=== PATIENT | male | born 1940 | race Caucasian/White ===

== ENCOUNTER → 2016-06-11 | Outpatient (CLI) | payer MEDICARE, OTHER | LOC: RAD 12:19 | PROVIDERS: ATTEND Specialist | DX: C18.7 Malignant neoplasm of sigmoid colon (principal) | CPT/HCPCS: 71260; 74177; 82565 ==

== ENCOUNTER 2016-07-16 08:17 | Inpatient (IN) | payer MEDICARE ==
[2016-07-05 10:24] LABS: MEAN CORPUSCULAR HEMOGLOBIN 25.1 pg (27.0-33.4); MEAN CORPUSCULAR HGB CONC 32.4 g/dL (32.0-36.0); MEAN CORPUSCULAR VOLUME 77 fl (80-97); RED BLOOD COUNT 4.78 10^6/uL (4.35-5.55); RED CELL DISTRIBUTION WIDTH 16.4 % (11.5-14.0); WHITE BLOOD COUNT 11.7 10^3/uL (4.0-10.5)
[2016-07-05 10:50] LABS: ALANINE AMINOTRANSFERASE 47 U/L (21-72); ALKALINE PHOSPHATASE 45 U/L (38-126); ANION GAP 9 (5-19); ASPARTATE AMINO TRANSFERASE 39 U/L (17-59); BILIRUBIN,DIRECT 0.2 mg/dL (0.0-0.4); BILIRUBIN,TOTAL 0.9 mg/dL (0.2-1.3); BLOOD UREA NITROGEN 29 mg/dL (7-20); CALCIUM 10.3 mg/dL (8.4-10.2); CARBON DIOXIDE 32 mmol/L (22-30); CHLORIDE 101 mmol/L (98-107); CREATININE RESULT 1.16 mg/dL (0.52-1.25); GLUCOSE 94 mg/dL (75-110); POTASSIUM 4.5 mmol/L (3.6-5.0); SODIUM 142.2 mmol/L (137-145); TOTAL PROTEIN 6.7 g/dL (6.3-8.2)
--- NOTE | 2016-07-05 22:30 | EKG REPORT ---
SEVERITY:- ABNORMAL ECG - ATRIAL FIBRILLATION INCOMPLETE RIGHT BUNDLE BRANCH BLOCK LVH WITH SECONDARY REPOLARIZATION ABNORMALITY : Confirmed by: Carisa Valencia MD 05-Jul-2016 22:28:58
[~2016-07-16 08:17] MED LIST: LIDOCAINE 0.5% INJ-PF (5 MG/ML) 50 ML SDV SUBCUT PRN; NORMAL SALINE 1000 ML 1,000 ML IV PRN; RINGERS SOLUTION,LACTATED 500 ML IV PRN
[2016-07-16] MEDS ORDERED: NEOSTIGMINE METHYLSULFATE 10 MG/10 ML VIAL ONE (08:33)
[2016-07-16] MEDS ORDERED: DEXAMETHASONE SOD PHOSPHATE INJ 4 MG/1 ML VIAL ONE (08:33)
[2016-07-16] MEDS ORDERED: GLYCOPYRROLATE INJ 0.4 MG/2 ML VIAL ONE (08:33)
[2016-07-16] MEDS ORDERED: ONDANSETRON HCL INJ/PF 4 MG/2 ML SDV ONE (08:33)
[2016-07-16] MEDS ORDERED: METOCLOPRAMIDE HCL INJ/PF 10 MG/2 ML SDV ONE (08:33)
[2016-07-16] MEDS ORDERED: LIDOCAINE 2% INJ-PF (20 MG/ML) 10 ML AMPUL ONE (08:33)
[2016-07-16] MEDS ORDERED: SUCCINYLCHOLINE CHLORIDE INJ 200 MG/10 ML VIAL ONE (08:33)
[2016-07-16] MEDS ORDERED: ROCURONIUM BROMIDE INJ 50 MG/5 ML VIAL IV ONE (08:33)
[2016-07-16] MEDS ORDERED: BUPIVACAINE HCL 0.25 % INJ/PF (2.5 MG/1 ML) 30 ML VIAL ONE (12:47)
[2016-07-16] MEDS ORDERED: FENTANYL CITRATE INJ/PF 100 MCG/2 ML AMPUL ONE (12:49)
[2016-07-16] MEDS ORDERED: MIDAZOLAM 2 MG/2 ML INJ ONE (12:49)
[2016-07-16] MEDS ORDERED: FENTANYL CITRATE INJ/PF 250 MCG/5 ML AMPULE ONE (12:49)
[2016-07-16] MEDS ORDERED: EPHEDRINE SULFATE INJ 50 MG/1 ML AMPULE ONE (12:50)
[2016-07-16] MEDS ORDERED: PROPOFOL INJ 200 MG/20 ML VIAL IV ONE (12:50)
[2016-07-16] MEDS: ERTAPENEM SODIUM 1 GM in NORMAL SALINE 50 ML IV PRN ×4 (13:59→22:40)
[2016-07-16] MEDS: BUPIVACAINE HCL 0.25% /EPINEPHRINE INJ/PF 30 ML SDV ONE ×2 (14:06→14:22)
[2016-07-16] MEDS ORDERED: PROMETHAZINE HCL INJ 25 MG/1 ML VIAL IV PRN ×2 (14:16)
[2016-07-16] MEDS ORDERED: DIPHENHYDRAMINE HCL 50 MG/ML VIAL IV PRN (14:16)
[2016-07-16] MEDS ORDERED: MORPHINE SULFATE 10 MG/ML INJ IV PRN (14:16)
[2016-07-16] MEDS ORDERED: OXYCODONE-ACETAMINOPHEN 5-325 MG TABLET PO PRN ×2 (14:16)
[2016-07-16] MEDS ORDERED: FENTANYL CITRATE INJ/PF 100 MCG/2 ML AMPUL IV PRN ×3 (14:16)
[2016-07-16] MEDS ORDERED: MEPERIDINE HCL/PF INJ 25 MG/1 ML DISP.SYRIN IV PRN (14:16)
[2016-07-16] MEDS ORDERED: ONDANSETRON HCL INJ/PF 4 MG/2 ML SDV IV PRN (17:01)
[2016-07-16] MEDS ORDERED: GLUCAGON,HUMAN RECOMB 1 MG INJ SUBCUT PRN (17:01)
[2016-07-16] MEDS ORDERED: DEXTROSE 40% GEL 15 GM TUBE PO PRN ×2 (17:01)
[2016-07-16] MEDS ORDERED: DEXTROSE 50%-WATER 25 GM/50 ML DISP.SYRIN IV PRN ×2 (17:01)
[2016-07-16] MEDS ORDERED: ACETAMINOPHEN 100 ML IV ONE (17:19)
[2016-07-16] MEDS ORDERED: IBUPROFEN INJ 800 MG/8 ML VIAL IV ONE (17:26)
[2016-07-16] MEDS ORDERED: HYDROMORPHONE HCL INJ/PF 2 MG/ML AMPULE ONE (17:56)
--- NOTE | 2016-07-16 19:17 | PDOC PROGRESS REPORT ---
Subjective Progress Note for:: 07/16/16 Subjective:: feels ok. Physical Exam Vital Signs: Temp Pulse Resp BP Pulse Ox 98.7 F 78 18 135/56 H 95 07/16/16 17:01 07/16/16 18:31 07/16/16 18:31 07/16/16 18:31 07/16/16 18:31 Intake & Output 07/15/16 07/16/16 07/17/16 06:59 06:59 06:59 Intake Total 3150 Output Total 900 Balance 2250 General appearance: PRESENT: no acute distress, cooperative Respiratory exam: PRESENT: clear to auscultation cuco Cardiovascular exam: PRESENT: RRR GI/Abdominal exam: PRESENT: other - soft, nd, appropriate tenderness Results Laboratory Results: 07/05/16 10:00 07/16/16 08:55 07/16/16 07/16/16 08:55 08:55 Potassium 3.6 Blood Type A POSITIVE Antibody Screen NEGATIVE Assessment & Plan - Diagnosis (1) Rectal cancer Is this a current diagnosis for this admission?: YesPlan: s/p LAR. looks good. fluid bolus. ambulate in am.
--- NOTE | 2016-07-16 19:21 | Operative Report ---
Operative Report DATE OF SURGERY: 07/16/16 PREOPERATIVE DIAGNOSIS: Upper rectal cancer POSTOPERATIVE DIAGNOSIS: Upper rectal cancer OPERATION: Low anterior resection with mobilization of the splenic flexure SURGEON: JAZZY SINGLETON ANESTHESIA: GA TISSUE REMOVED OR ALTERED: Sigmoid colon and upper to mid rectum COMPLICATIONS: None ESTIMATED BLOOD LOSS: 100 mL INTRAOPERATIVE FINDINGS: Upper rectal circumferential cancer. No gross evidence of metastatic disease PROCEDURE: Informed consent was obtained. Patient was brought to the operating room placed on the operating room table in supine position. After satisfactory induction of general anesthesia, patient was placed in a low lithotomy position and his abdomen and perineum were prepped and draped in usual sterile fashion. A midline abdominal incision was made beginning just above the umbilicus extending down to the pubis. The peritoneal cavity was entered without difficulty. a wound protractor was used during the case. Exploratory laparotomy was performed first. The liver appeared normal with no masses other than what appeared to be a benign cyst at the medial segment of the left lobe of the liver. Peritoneal surface felt smooth with no nodules. Omentum appeared normal although it did have some adhesions to the small bowel. These adhesions were taken down. The small bowel was run from the ligament of Treitz to the ileocecal junction and the small bowel appeared normal. The right colon and the transverse colon and descending colon and sigmoid colon all appeared normal. At the upper rectum right at the peritoneal reflection there was a palpable rectal mass. The left colon was mobilized along the line of Toldt. The sigmoid colon was mobilized. The left ureter was identified and protected during the dissection. The HENRIK was isolated and it was divided near its origin. It was clamped divided and tied. The colon was divided using a GOPI stapling device at the junction between the descending colon and the sigmoid colon. The entire mesentery of the sigmoid colon was taken using the LigaSure device. Dissection was then carried down distally. Posterior dissection of the rectum was performed in the avascular plane. Followed by dissection laterally. Finally anteriorly. Dissection was carried down to the mid rectal level. At the left mesorectum I felt an enlarged lymph node and this region came out with the specimen. Several centimeters below the level of the palpable tumor, the mid rectum was divided using a contour stapling device. The mesorectum at this level was divided using the LigaSure. The left colon was fully mobilized and the splenic flexure was fully mobilized allowing the descending colon end to reach down to the rectal stump without any tension. The descending colon end had excellent blood supply as demonstrated by visible pulsation in its mesentery as well as triphasic Doppler signals. The specimen was examined with the pathologist. The distal margin appeared good. Circumferential upper rectal tumor was seen in the specimen. Size 33 EEA stapling device had was attached to the descending colon end using a pursestring device. The anus was sequentially dilated. An end to end anastomosis was then created between the descending colon and and the rectal stump using a 33 EEA stapling device. The anastomosis came together well with absolutely no tension. The anastomosis appeared secure. Both of the doughnuts were intact. The anastomosis was tested by insufflating air via a proctoscope. The anastomosis was airtight. Hemostasis appeared excellent. The operative field was lightly irrigated and irrigant aspirated out. Sponge needle instrument counts were all correct. The fascia was closed using running PDS suture. Skin was closed with ricardo. Marcaine was injected at the operative site. Patient tolerated procedure well with no apparent complications and was taken to the recovery area in stable condition.
[2016-07-16] MEDS ORDERED: NORMAL SALINE 500 ML IV PRN (19:25)
[2016-07-16] MEDS: MORPHINE SULFATE 10 MG/ML INJ IV PRN ×2 (20:03→23:04)
[2016-07-16] MEDS: NORMAL SALINE 1000 ML 1,000 ML IV PRN (20:58)
[2016-07-16] MEDS: FAMOTIDINE INJ/PF 20 MG/2 ML SDV IV SCH (20:59)
[2016-07-16] MEDS: LACTATED RINGERS 1000 ML IV PRN ×3 (22:37→22:40)
[2016-07-17] MEDS: MORPHINE SULFATE 10 MG/ML INJ IV PRN ×5 (02:25→21:32)
[2016-07-17] MEDS: NORMAL SALINE 1000 ML 1,000 ML IV PRN ×3 (05:35→21:32)
[2016-07-17 07:06] LABS: HEMATOCRIT 31.7 % (37.9-51.0); HEMOGLOBIN 10.7 g/dL (13.5-17.0); HGB HCT DIFFERENCE 0.4; MEAN CORPUSCULAR HEMOGLOBIN 26.2 pg (27.0-33.4); MEAN CORPUSCULAR HGB CONC 33.7 g/dL (32.0-36.0); MEAN CORPUSCULAR VOLUME 78 fl (80-97); RED BLOOD COUNT 4.09 10^6/uL (4.35-5.55); RED CELL DISTRIBUTION WIDTH 16.3 % (11.5-14.0); WHITE BLOOD COUNT 15.1 10^3/uL (4.0-10.5)
[2016-07-17 07:22] LABS: ANION GAP 11 (5-19); BLOOD UREA NITROGEN 25 mg/dL (7-20); CALCIUM 8.7 mg/dL (8.4-10.2); CARBON DIOXIDE 27 mmol/L (22-30); CHLORIDE 106 mmol/L (98-107); CREATININE RESULT 1.32 mg/dL (0.52-1.25); GLUCOSE 122 mg/dL (75-110); POTASSIUM 3.6 mmol/L (3.6-5.0); SODIUM 143.8 mmol/L (137-145)
[2016-07-17] MEDS: ENOXAPARIN SODIUM INJ 40 MG/0.4 ML DISP.SYRIN SUBCUT SCH (08:16)
--- NOTE | 2016-07-17 09:04 | PDOC PROGRESS REPORT ---
Subjective Progress Note for:: 07/17/16 Subjective:: Only fair pain relief. Otherwise no complaints. Physical Exam Vital Signs: Temp Pulse Resp BP Pulse Ox 98.0 F 70 16 120/48 L 96 07/17/16 07:00 07/17/16 07:00 07/17/16 07:00 07/17/16 07:00 07/17/16 07:00 Intake & Output 07/16/16 07/17/16 07/18/16 06:59 06:59 06:59 Intake Total 3800 Output Total 1425 Balance 2375 Weight 79.4 kg General appearance: PRESENT: no acute distress, cooperative Respiratory exam: PRESENT: clear to auscultation cuco Cardiovascular exam: PRESENT: RRR GI/Abdominal exam: PRESENT: other - Soft, mildly distended. Decreased bowel sounds. Appropriate tenderness. Dressings dry. NG output is bile stained Extremities exam: PRESENT: other - No swelling no tenderness Results Laboratory Results: 07/17/16 06:16 07/17/16 06:16 07/16/16 07/16/16 07/17/16 08:55 08:55 06:16 WBC 15.1 H RBC 4.09 L Hgb 10.7 L Hct 31.7 L MCV 78 L MCH 26.2 L MCHC 33.7 RDW 16.3 H Plt Count 194 Sodium Potassium 3.6 Chloride Carbon Dioxide Anion Gap BUN Creatinine Est GFR ( Amer) Est GFR (Non-Af Amer) Glucose Calcium Blood Type A POSITIVE Antibody Screen NEGATIVE 07/17/16 06:16 WBC RBC Hgb Hct MCV MCH MCHC RDW Plt Count Sodium 143.8 Potassium 3.6 Chloride 106 Carbon Dioxide 27 Anion Gap 11 BUN 25 H Creatinine 1.32 H Est GFR ( Amer) > 60 Est GFR (Non-Af Amer) 53 L Glucose 122 H Calcium 8.7 Blood Type Antibody Screen Assessment & Plan - Diagnosis (1) Rectal cancer Is this a current diagnosis for this admission?: YesPlan: s/p LAR. Postop ileus. A little behind in his fluids. IV fluid bolus once more today. We'll keep an eye on his elevated creatinine. Patient once his Grider catheter out. He promises to ambulate. Will add Toradol for pain control.
[2016-07-17] MEDS ORDERED: (PENDING PHARMACY ID) (Fenofibrate,Micronized [Fenofibrate] 130 MG) PO SCH (10:00)
[2016-07-17] MEDS ORDERED: (PENDING PHARMACY ID) (Losartan/Hydrochlorothiazide [Hyzaar 100-25 Tablet] 1 EACH) PO SCH (10:00)
[2016-07-17] MEDS: ASPIRIN 81 MG TABLET, ENT COATED PO SCH (11:13)
[2016-07-17] MEDS: FAMOTIDINE INJ/PF 20 MG/2 ML SDV IV SCH ×2 (11:13→21:32)
[2016-07-17] MEDS: FENOFIBRATE NANOCRYSTALLIZED 145 MG TABLET PO SCH (11:14)
[2016-07-17] MEDS: DUTASTERIDE 0.5 MG CAPSULE PO SCH (11:14)
[2016-07-17] MEDS: SERTRALINE HCL 50 MG TABLET PO SCH (11:14)
[2016-07-17] MEDS: TAMSULOSIN HCL 0.4 MG CAP.SR.24H PO SCH (11:14)
[2016-07-17] MEDS: ATORVASTATIN CALCIUM 80 MG TABLET PO SCH (11:15)
[2016-07-17] MEDS: KETOROLAC TROMETHAMINE INJ/PF 30 MG/1 ML SDV IV PRN ×2 (11:15→23:52)
[2016-07-17] MEDS: METOPROLOL SUCCINATE 50 MG TAB.SR.24H PO SCH (14:11)
[2016-07-17] MEDS: LOSARTAN POTASSIUM 50 MG TABLET PO SCH (14:11)
[2016-07-17] MEDS: HYDROCHLOROTHIAZIDE 25 MG TABLET PO SCH (15:07)
[2016-07-17] MEDS: DIGOXIN 0.25 MG TABLET PO SCH (15:10)
--- NOTE | 2016-07-17 17:09 | PDOC PROGRESS REPORT ---
Subjective Progress Note for:: 07/17/16 Subjective:: Feels better. Pain under better control. Still not able to urinate yet. But does not have pelvic discomfort. Physical Exam Vital Signs: Temp Pulse Resp BP Pulse Ox 97.5 F 78 16 111/54 L 93 07/17/16 15:25 07/17/16 15:25 07/17/16 15:25 07/17/16 15:25 07/17/16 15:25 Intake & Output 07/16/16 07/17/16 07/18/16 06:59 06:59 06:59 Intake Total 3800 Output Total 1425 Balance 2375 Weight 79.4 kg General appearance: PRESENT: no acute distress, cooperative Respiratory exam: PRESENT: clear to auscultation cuco Cardiovascular exam: PRESENT: RRR GI/Abdominal exam: PRESENT: other - Soft, minimally distended. Decreased bowel sounds. Appropriate tenderness. Results Laboratory Results: 07/17/16 06:16 07/17/16 06:16 07/17/16 07/17/16 06:16 06:16 WBC 15.1 H RBC 4.09 L Hgb 10.7 L Hct 31.7 L MCV 78 L MCH 26.2 L MCHC 33.7 RDW 16.3 H Plt Count 194 Sodium 143.8 Potassium 3.6 Chloride 106 Carbon Dioxide 27 Anion Gap 11 BUN 25 H Creatinine 1.32 H Est GFR ( Amer) > 60 Est GFR (Non-Af Amer) 53 L Glucose 122 H Calcium 8.7 Assessment & Plan - Diagnosis (1) Rectal cancer Is this a current diagnosis for this admission?: YesPlan: s/p LAR. Looks okay. Pain under better control. If patient unable to urinate will reinsert the catheter for a couple more days. Pt ambulated today. Making good progress otherwise.
[2016-07-18] MEDS: MORPHINE SULFATE 10 MG/ML INJ IV PRN ×4 (05:17→16:34)
[2016-07-18 07:20] LABS: HEMATOCRIT 29.5 % (37.9-51.0); HEMOGLOBIN 9.7 g/dL (13.5-17.0); HGB HCT DIFFERENCE -0.4; MEAN CORPUSCULAR HEMOGLOBIN 25.9 pg (27.0-33.4); MEAN CORPUSCULAR HGB CONC 32.8 g/dL (32.0-36.0); MEAN CORPUSCULAR VOLUME 79 fl (80-97); RED BLOOD COUNT 3.74 10^6/uL (4.35-5.55); RED CELL DISTRIBUTION WIDTH 16.2 % (11.5-14.0); WHITE BLOOD COUNT 11.3 10^3/uL (4.0-10.5)
[2016-07-18 07:39] LABS: ANION GAP 9 (5-19); BLOOD UREA NITROGEN 22 mg/dL (7-20); CALCIUM 8.6 mg/dL (8.4-10.2); CARBON DIOXIDE 26 mmol/L (22-30); CHLORIDE 108 mmol/L (98-107); CREATININE RESULT 1.13 mg/dL (0.52-1.25); GLUCOSE 108 mg/dL (75-110); POTASSIUM 3.7 mmol/L (3.6-5.0)
--- NOTE | 2016-07-18 08:20 | PDOC PROGRESS REPORT ---
Subjective Progress Note for:: 07/18/16 Subjective:: Feels okay. Wasn't able to urinate yesterday had to have Grider reinserted. Physical Exam Vital Signs: Temp Pulse Resp BP Pulse Ox 97.8 F 87 14 137/72 H 95 07/17/16 23:31 07/17/16 23:31 07/17/16 23:31 07/17/16 23:31 07/17/16 23:40 Intake & Output 07/17/16 07/18/16 07/19/16 06:59 06:59 06:59 Intake Total 3800 2450 Output Total 1425 775 Balance 2375 1675 Weight 79.4 kg 81.7 kg General appearance: PRESENT: no acute distress, cooperative Respiratory exam: PRESENT: clear to auscultation cuco Cardiovascular exam: PRESENT: RRR GI/Abdominal exam: PRESENT: other - Soft, mildly distended, appropriate tenderness. NG tube output has slight bile tinged. Extremities exam: PRESENT: other - No swelling and no tenderness Results Laboratory Results: 07/18/16 06:59 07/18/16 06:59 07/18/16 07/18/16 06:59 06:59 WBC 11.3 H RBC 3.74 L Hgb 9.7 L Hct 29.5 L MCV 79 L MCH 25.9 L MCHC 32.8 RDW 16.2 H Plt Count 181 Sodium 143.0 Potassium 3.7 Chloride 108 H Carbon Dioxide 26 Anion Gap 9 BUN 22 H Creatinine 1.13 Est GFR ( Amer) > 60 Est GFR (Non-Af Amer) > 60 Glucose 108 Calcium 8.6 Assessment & Plan - Diagnosis (1) Rectal cancer Is this a current diagnosis for this admission?: YesPlan: s/p LAR. Looks okay. Pain under better control. Await bowel function. Decreased hematocrit likely due to hemodilution however we'll hold his Lovenox today. Continue to encourage ambulation.
[2016-07-18] MEDS ORDERED: DEXTROSE 5%-1/2 NORMAL SALINE 1,000 ML with POTASSIUM CHLORIDE 20 MEQ IV PRN ×2 (08:22)
[2016-07-18] MEDS: ENOXAPARIN SODIUM INJ 40 MG/0.4 ML DISP.SYRIN SUBCUT SCH (08:37)
[2016-07-18] MEDS: POTASSI CL 20 MEQ/D5-1/2NS 1L 1000 ML IV PRN ×2 (10:01→23:00)
[2016-07-18] MEDS: ATORVASTATIN CALCIUM 80 MG TABLET PO SCH (10:02)
[2016-07-18] MEDS: DUTASTERIDE 0.5 MG CAPSULE PO SCH (10:02)
[2016-07-18] MEDS: ASPIRIN 81 MG TABLET, ENT COATED PO SCH (10:02)
[2016-07-18] MEDS: FAMOTIDINE INJ/PF 20 MG/2 ML SDV IV SCH ×2 (10:02→21:44)
[2016-07-18] MEDS: TAMSULOSIN HCL 0.4 MG CAP.SR.24H PO SCH (10:03)
[2016-07-18] MEDS: HYDROCHLOROTHIAZIDE 25 MG TABLET PO SCH (10:03)
[2016-07-18] MEDS: LOSARTAN POTASSIUM 50 MG TABLET PO SCH (10:03)
[2016-07-18] MEDS: DIGOXIN 0.25 MG TABLET PO SCH (10:04)
[2016-07-18] MEDS: SERTRALINE HCL 50 MG TABLET PO SCH (10:04)
[2016-07-18] MEDS: METOPROLOL SUCCINATE 50 MG TAB.SR.24H PO SCH (10:04)
[2016-07-18] MEDS: FENOFIBRATE NANOCRYSTALLIZED 145 MG TABLET PO SCH (10:05)
[2016-07-18] MEDS: KETOROLAC TROMETHAMINE INJ/PF 30 MG/1 ML SDV IV PRN (21:44)
[2016-07-19] MEDS: MORPHINE SULFATE 10 MG/ML INJ IV PRN ×2 (00:48→10:59)
[2016-07-19 06:18] LABS: HEMATOCRIT 28.8 % (37.9-51.0); HEMOGLOBIN 9.6 g/dL (13.5-17.0); MEAN CORPUSCULAR HEMOGLOBIN 25.8 pg (27.0-33.4); MEAN CORPUSCULAR HGB CONC 33.3 g/dL (32.0-36.0); MEAN CORPUSCULAR VOLUME 78 fl (80-97); RED BLOOD COUNT 3.71 10^6/uL (4.35-5.55); RED CELL DISTRIBUTION WIDTH 16.2 % (11.5-14.0)
[2016-07-19 06:32] LABS: ANION GAP 10 (5-19); BLOOD UREA NITROGEN 18 mg/dL (7-20); CALCIUM 8.8 mg/dL (8.4-10.2); CARBON DIOXIDE 27 mmol/L (22-30); CHLORIDE 108 mmol/L (98-107); CREATININE RESULT 0.94 mg/dL (0.52-1.25); GLUCOSE 127 mg/dL (75-110); POTASSIUM 3.9 mmol/L (3.6-5.0); SODIUM 145.2 mmol/L (137-145)
--- NOTE | 2016-07-19 07:56 | PDOC PROGRESS REPORT ---
Subjective Progress Note for:: 07/19/16 Subjective:: Feels okay. Pain is less. No flatus. Physical Exam Vital Signs: Temp Pulse Resp BP Pulse Ox 98.4 F 74 17 149/68 H 96 07/18/16 23:37 07/18/16 23:37 07/18/16 23:37 07/18/16 23:37 07/18/16 23:37 Intake & Output 07/18/16 07/19/16 07/20/16 06:59 06:59 06:59 Intake Total 2450 2317 Output Total 775 1975 Balance 1675 342 Weight 81.7 kg 83.4 kg General appearance: PRESENT: no acute distress, cooperative Respiratory exam: PRESENT: clear to auscultation cuco Cardiovascular exam: PRESENT: RRR GI/Abdominal exam: PRESENT: other - Soft, mildly distended, appropriate tenderness with no peritoneal signs. Wound is clean dry and intact. bile tinged output via ng. Extremities exam: PRESENT: other - No swelling Results Laboratory Results: 07/19/16 06:10 07/19/16 06:10 07/19/16 07/19/16 06:10 06:10 WBC 13.0 H RBC 3.71 L Hgb 9.6 L Hct 28.8 L MCV 78 L MCH 25.8 L MCHC 33.3 RDW 16.2 H Plt Count 177 Sodium 145.2 H Potassium 3.9 Chloride 108 H Carbon Dioxide 27 Anion Gap 10 BUN 18 Creatinine 0.94 Est GFR ( Amer) > 60 Est GFR (Non-Af Amer) > 60 Glucose 127 H Calcium 8.8 Assessment & Plan - Diagnosis (1) Rectal cancer Is this a current diagnosis for this admission?: YesPlan: s/p LAR. Looks okay. Pain under better control. Await bowel function. Patient ambulating well. Will try Grider removal again. Continue NG in light of the bile tinged output still.
[2016-07-19] MEDS: ENOXAPARIN SODIUM INJ 40 MG/0.4 ML DISP.SYRIN SUBCUT SCH (08:42)
[2016-07-19] MEDS: LOSARTAN POTASSIUM 50 MG TABLET PO SCH (13:07)
[2016-07-19] MEDS: SERTRALINE HCL 50 MG TABLET PO SCH (13:09)
[2016-07-19] MEDS: FENOFIBRATE NANOCRYSTALLIZED 145 MG TABLET PO SCH (13:09)
[2016-07-19] MEDS: TAMSULOSIN HCL 0.4 MG CAP.SR.24H PO SCH (13:09)
[2016-07-19] MEDS: ASPIRIN 81 MG TABLET, ENT COATED PO SCH (13:09)
[2016-07-19] MEDS: HYDROCHLOROTHIAZIDE 25 MG TABLET PO SCH (13:09)
[2016-07-19] MEDS: POTASSI CL 20 MEQ/D5-1/2NS 1L 1000 ML IV PRN (13:10)
[2016-07-19] MEDS: METOPROLOL SUCCINATE 50 MG TAB.SR.24H PO SCH (13:10)
[2016-07-19] MEDS: FAMOTIDINE INJ/PF 20 MG/2 ML SDV IV SCH ×2 (13:20→23:10)
[2016-07-19] MEDS: DIGOXIN 0.25 MG TABLET PO SCH (13:20)
[2016-07-19] MEDS: DUTASTERIDE 0.5 MG CAPSULE PO SCH (13:20)
[2016-07-19] MEDS: ATORVASTATIN CALCIUM 80 MG TABLET PO SCH (13:20)
[2016-07-19] MEDS: KETOROLAC TROMETHAMINE INJ/PF 30 MG/1 ML SDV IV PRN (15:13)
[2016-07-20] MEDS: POTASSI CL 20 MEQ/D5-1/2NS 1L 1000 ML IV PRN (01:52)
[2016-07-20] MEDS: ENOXAPARIN SODIUM INJ 40 MG/0.4 ML DISP.SYRIN SUBCUT SCH (08:43)
--- NOTE | 2016-07-20 09:18 | PDOC PROGRESS REPORT ---
Subjective Progress Note for:: 07/20/16 Subjective:: mild nausea passed some flatus Physical Exam Vital Signs: Temp Pulse Resp BP Pulse Ox 97.6 F 80 21 H 146/66 H 99 07/20/16 07:00 07/20/16 07:00 07/20/16 07:00 07/20/16 07:00 07/20/16 07:00 Intake & Output 07/19/16 07/20/16 07/21/16 06:59 06:59 06:59 Intake Total 2317 3879 Output Total 7296 700 Balance 342 3179 Weight 83.4 kg 83.3 kg GI/Abdominal exam: PRESENT: other - mild distention soft abdomen Results Laboratory Results: 07/19/16 06:10 07/19/16 06:10 Assessment & Plan - Plan Summary Plan Summary: s/p LAR Recovering well keep on po clears today Ambulate
[2016-07-20] MEDS: LOSARTAN POTASSIUM 50 MG TABLET PO SCH (10:00)
[2016-07-20] MEDS: FENOFIBRATE NANOCRYSTALLIZED 145 MG TABLET PO SCH (10:40)
[2016-07-20] MEDS: DUTASTERIDE 0.5 MG CAPSULE PO SCH (10:40)
[2016-07-20] MEDS: HYDROCHLOROTHIAZIDE 25 MG TABLET PO SCH (10:40)
[2016-07-20] MEDS: ATORVASTATIN CALCIUM 80 MG TABLET PO SCH (10:40)
[2016-07-20] MEDS: ASPIRIN 81 MG TABLET, ENT COATED PO SCH (10:40)
[2016-07-20] MEDS: DIGOXIN 0.25 MG TABLET PO SCH (10:40)
[2016-07-20] MEDS: TAMSULOSIN HCL 0.4 MG CAP.SR.24H PO SCH (10:41)
[2016-07-20] MEDS: FAMOTIDINE INJ/PF 20 MG/2 ML SDV IV SCH ×2 (10:41→23:44)
[2016-07-20] MEDS: METOPROLOL SUCCINATE 50 MG TAB.SR.24H PO SCH (10:41)
[2016-07-20] MEDS: SERTRALINE HCL 50 MG TABLET PO SCH (11:00)
[2016-07-20 12:01] LABS: ABSOLUTE BASOPHILS # (AUTO) 0.1 10^3/uL (0.0-0.2); ABSOLUTE EOSINOPHILS # (AUTO) 0.3 10^3/uL (0.0-0.6); ABSOLUTE LYMPHOCYTES (AUTO) 1.3 10^3/uL (0.5-4.7); ABSOLUTE MONOCYTES (AUTO) 0.7 10^3/uL (0.1-1.4); ABSOLUTE NEUT (AUTO) 7.8 10^3/uL (1.7-8.2); BASOPHILS % (AUTO) 0.8 % (0-2); EOSINOPHILS % (AUTO) 3.2 % (0-6); HEMATOCRIT 30.1 % (37.9-51.0); HEMOGLOBIN 9.8 g/dL (13.5-17.0); HGB HCT DIFFERENCE -0.7; LYMPHOCYTES % (AUTO) 12.5 % (13-45); MEAN CORPUSCULAR HEMOGLOBIN 25.5 pg (27.0-33.4); MEAN CORPUSCULAR HGB CONC 32.7 g/dL (32.0-36.0); MEAN CORPUSCULAR VOLUME 78 fl (80-97); MONOCYTES % (AUTO) 6.8 % (3-13); RED BLOOD COUNT 3.85 10^6/uL (4.35-5.55); RED CELL DISTRIBUTION WIDTH 16.2 % (11.5-14.0); SEGMENTED NEUTROPHILS % (AUTO) 76.7 % (42-78); WHITE BLOOD COUNT 10.2 10^3/uL (4.0-10.5)
[2016-07-20 12:15] LABS: ANION GAP 12 (5-19); BLOOD UREA NITROGEN 18 mg/dL (7-20); CARBON DIOXIDE 25 mmol/L (22-30); CHLORIDE 107 mmol/L (98-107); CREATININE RESULT 1.15 mg/dL (0.52-1.25); GLUCOSE 122 mg/dL (75-110); POTASSIUM 3.9 mmol/L (3.6-5.0); SODIUM 143.6 mmol/L (137-145)
[2016-07-20] MEDS: KETOROLAC TROMETHAMINE INJ/PF 30 MG/1 ML SDV IV PRN (23:55)
[2016-07-21] MEDS: ENOXAPARIN SODIUM INJ 40 MG/0.4 ML DISP.SYRIN SUBCUT SCH (07:50)
[2016-07-21 09:51] LABS: ABSOLUTE BASOPHILS # (AUTO) 0.1 10^3/uL (0.0-0.2); ABSOLUTE EOSINOPHILS # (AUTO) 0.8 10^3/uL (0.0-0.6); ABSOLUTE LYMPHOCYTES (AUTO) 1.6 10^3/uL (0.5-4.7); ABSOLUTE MONOCYTES (AUTO) 0.7 10^3/uL (0.1-1.4); ABSOLUTE NEUT (AUTO) 6.2 10^3/uL (1.7-8.2); BASOPHILS % (AUTO) 0.8 % (0-2); EOSINOPHILS % (AUTO) 8.6 % (0-6); HEMATOCRIT 30.4 % (37.9-51.0); HEMOGLOBIN 10.3 g/dL (13.5-17.0); HGB HCT DIFFERENCE 0.5; LYMPHOCYTES % (AUTO) 17.1 % (13-45); MEAN CORPUSCULAR HEMOGLOBIN 26.1 pg (27.0-33.4); MEAN CORPUSCULAR HGB CONC 33.8 g/dL (32.0-36.0); MEAN CORPUSCULAR VOLUME 77 fl (80-97); MONOCYTES % (AUTO) 7.2 % (3-13); RED BLOOD COUNT 3.93 10^6/uL (4.35-5.55); RED CELL DISTRIBUTION WIDTH 16.3 % (11.5-14.0); SEGMENTED NEUTROPHILS % (AUTO) 66.3 % (42-78); WHITE BLOOD COUNT 9.3 10^3/uL (4.0-10.5)
[2016-07-21] MEDS: POTASSI CL 20 MEQ/D5-1/2NS 1L 1000 ML IV PRN ×2 (10:17→21:59)
[2016-07-21] MEDS: FAMOTIDINE INJ/PF 20 MG/2 ML SDV IV SCH ×2 (10:18→21:59)
[2016-07-21] MEDS: FENOFIBRATE NANOCRYSTALLIZED 145 MG TABLET PO SCH (10:18)
[2016-07-21] MEDS: METOPROLOL SUCCINATE 50 MG TAB.SR.24H PO SCH (10:18)
[2016-07-21] MEDS: ATORVASTATIN CALCIUM 80 MG TABLET PO SCH (10:18)
[2016-07-21] MEDS: LOSARTAN POTASSIUM 50 MG TABLET PO SCH (10:18)
[2016-07-21] MEDS: HYDROCHLOROTHIAZIDE 25 MG TABLET PO SCH (10:18)
[2016-07-21] MEDS: DUTASTERIDE 0.5 MG CAPSULE PO SCH (10:18)
[2016-07-21] MEDS: SERTRALINE HCL 50 MG TABLET PO SCH (10:18)
[2016-07-21] MEDS: TAMSULOSIN HCL 0.4 MG CAP.SR.24H PO SCH (10:18)
[2016-07-21] MEDS: ASPIRIN 81 MG TABLET, ENT COATED PO SCH (10:18)
[2016-07-21] MEDS: DIGOXIN 0.25 MG TABLET PO SCH (10:21)
--- NOTE | 2016-07-21 14:00 | PDOC PROGRESS REPORT ---
Subjective Progress Note for:: 07/21/16 Subjective:: feeling better had small bm Physical Exam Vital Signs: Temp Pulse Resp BP Pulse Ox 98.2 F 63 20 148/92 H 99 07/21/16 07:17 07/21/16 07:17 07/21/16 07:17 07/21/16 07:17 07/21/16 07:17 Intake & Output 07/20/16 07/21/16 07/22/16 06:59 06:59 06:59 Intake Total 3879 1150 Output Total 700 1200 Balance 3179 -50 Weight 83.3 kg 83.4 kg GI/Abdominal exam: PRESENT: other - Soft, distention less Results Laboratory Results: 07/21/16 09:33 07/20/16 11:41 07/21/16 09:33 WBC 9.3 RBC 3.93 L Hgb 10.3 L Hct 30.4 L MCV 77 L MCH 26.1 L MCHC 33.8 RDW 16.3 H Plt Count 208 Seg Neutrophils % 66.3 Lymphocytes % 17.1 Monocytes % 7.2 Eosinophils % 8.6 H Basophils % 0.8 Absolute Neutrophils 6.2 Absolute Lymphocytes 1.6 Absolute Monocytes 0.7 Absolute Eosinophils 0.8 H Absolute Basophils 0.1 Assessment & Plan - Plan Summary Plan Summary: s/p LAR Progressing, Ileus resolving Full liquid diet today Ambulate
[2016-07-22 04:44] LABS: HEMATOCRIT 28.4 % (37.9-51.0); HEMOGLOBIN 9.5 g/dL (13.5-17.0); HGB HCT DIFFERENCE 0.1; MEAN CORPUSCULAR HEMOGLOBIN 26.1 pg (27.0-33.4); MEAN CORPUSCULAR HGB CONC 33.6 g/dL (32.0-36.0); MEAN CORPUSCULAR VOLUME 78 fl (80-97); RED BLOOD COUNT 3.66 10^6/uL (4.35-5.55); RED CELL DISTRIBUTION WIDTH 15.7 % (11.5-14.0); WHITE BLOOD COUNT 9.9 10^3/uL (4.0-10.5)
[2016-07-22 04:56] LABS: ANION GAP 10 (5-19); BLOOD UREA NITROGEN 19 mg/dL (7-20); CARBON DIOXIDE 25 mmol/L (22-30); CHLORIDE 106 mmol/L (98-107); CREATININE RESULT 1.25 mg/dL (0.52-1.25); GLUCOSE 110 mg/dL (75-110); SODIUM 140.8 mmol/L (137-145)
[2016-07-22 07:44] VITALS: BP 151/60
--- NOTE | 2016-07-22 09:08 | PDOC PROGRESS REPORT ---
Subjective Progress Note for:: 07/22/16 Subjective:: Feels well. Good bowel function. Tolerating solid diet well. Physical Exam Vital Signs: Temp Pulse Resp BP Pulse Ox 97.8 F 63 20 151/60 H 97 07/22/16 09:04 07/22/16 09:04 07/22/16 09:04 07/22/16 09:04 07/22/16 09:04 Intake & Output 07/21/16 07/22/16 07/23/16 06:59 06:59 06:59 Intake Total 1150 1957 Output Total 1200 1200 Balance -50 757 Weight 83.4 kg 84.7 kg General appearance: PRESENT: no acute distress, cooperative Respiratory exam: PRESENT: clear to auscultation cuco Cardiovascular exam: PRESENT: RRR GI/Abdominal exam: PRESENT: other - Soft, nondistended, nontender to palpation. Clean dry and intact. Extremities exam: PRESENT: other - No swelling and no tenderness Results Laboratory Results: 07/22/16 04:26 07/22/16 04:26 07/21/16 07/22/16 07/22/16 09:33 04:26 04:26 WBC 9.3 9.9 RBC 3.93 L 3.66 L Hgb 10.3 L 9.5 L Hct 30.4 L 28.4 L MCV 77 L 78 L MCH 26.1 L 26.1 L MCHC 33.8 33.6 RDW 16.3 H 15.7 H Plt Count 208 205 Seg Neutrophils % 66.3 Lymphocytes % 17.1 Monocytes % 7.2 Eosinophils % 8.6 H Basophils % 0.8 Absolute Neutrophils 6.2 Absolute Lymphocytes 1.6 Absolute Monocytes 0.7 Absolute Eosinophils 0.8 H Absolute Basophils 0.1 Sodium 140.8 Potassium 4.0 Chloride 106 Carbon Dioxide 25 Anion Gap 10 BUN 19 Creatinine 1.25 Est GFR ( Amer) > 60 Est GFR (Non-Af Amer) 56 L Glucose 110 Calcium 9.0 Assessment & Plan - Diagnosis (1) Rectal cancer Is this a current diagnosis for this admission?: YesPlan: s/p LAR. Looks good. We'll discharge patient home. Follow-up next week.
[2016-07-22] MEDS: FENOFIBRATE NANOCRYSTALLIZED 145 MG TABLET PO SCH (09:25)
[2016-07-22] MEDS: SERTRALINE HCL 50 MG TABLET PO SCH (09:26)
[2016-07-22] MEDS: ATORVASTATIN CALCIUM 80 MG TABLET PO SCH (09:26)
[2016-07-22] MEDS: LOSARTAN POTASSIUM 50 MG TABLET PO SCH (09:26)
[2016-07-22] MEDS: DUTASTERIDE 0.5 MG CAPSULE PO SCH (09:26)
[2016-07-22] MEDS: FAMOTIDINE INJ/PF 20 MG/2 ML SDV IV SCH (09:27)
[2016-07-22] MEDS: TAMSULOSIN HCL 0.4 MG CAP.SR.24H PO SCH (09:27)
[2016-07-22] MEDS: ASPIRIN 81 MG TABLET, ENT COATED PO SCH (09:27)
[2016-07-22] MEDS: HYDROCHLOROTHIAZIDE 25 MG TABLET PO SCH (09:27)
--- NOTE | 2016-07-22 09:27 | DISCHARGE SUMMARY E ---
Discharge Summary NAME: TUAN MIRELES : 1940 AGE: 75Y ADMITTED: 07/16/2016 DISCHARGED: 07/22/2016 DISCHARGE DIAGNOSIS: Upper rectal cancer. PROCEDURE PERFORMED DURING HOSPITALIZATION: Low anterior resection with mobilization of the splenic flexure, performed by Dr. Sanjeev Singleton on 07/16/2016. HOSPITAL COURSE: The patient underwent the above-mentioned surgery. He did well postoperatively other than urinary retention, requiring Grider reinsertion. However, by the end of his hospitalization, he was urinating well without difficulty. The patient is now being discharged to home in good condition. He will follow up with me next week. He may follow a cardiac diet. He is to resume all of his home medications. Additional medications: Percocet 1 p.o. q. 4 hours p.r.n. pain. DICTATING PHYSICIAN: SANJEEV SINGLETON M.D. [id number] PHY#: [id number] ID: [id number] JOB#: [id number] ACCT: [id number] cc:SANJEEV SINGLETON M.D. >
[2016-07-22] MEDS: METOPROLOL SUCCINATE 50 MG TAB.SR.24H PO SCH (09:31)
[2016-07-22] MEDS: DIGOXIN 0.25 MG TABLET PO SCH (09:31)
[2016-07-22] MEDS: ENOXAPARIN SODIUM INJ 40 MG/0.4 ML DISP.SYRIN SUBCUT SCH (09:32)
== END 2016-07-22 09:59 | disposition home or self-care (01) | DRG 330 ==
LOC: INOR 08:17 → 4S 08:17 → UNDOADMIN 08:17
PROVIDERS: ADMIT Surgery; ATTEND Surgery
PROC: 0DTN0ZZ Resection of Sigmoid Colon, Open Approach (ICD-10-PCS; principal; 2016-07-16 10:30)
DX: C18.6 Malignant neoplasm of descending colon (principal); K91.3 Postprocedural intestinal obstruction; I10 Essential (primary) hypertension; E78.5 Hyperlipidemia, unspecified; N42.9 Disorder of prostate, unspecified; I25.10 Atherosclerotic heart disease of native coronary artery without angina pectoris; F17.290 Nicotine dependence, other tobacco product, uncomplicated; R33.9 Retention of urine, unspecified; Y83.2 Surgical operation with anastomosis, bypass or graft as the cause of abnormal reaction of the patient, or of later complication, without mention of misadventure at the time of the procedure; Y92.230 Patient room in hospital as the place of occurrence of the external cause
CPT/HCPCS: 36415; 80048; 80053; 82378; 840; 84132; 85025; 85027; 86850; 86900; 86901; 88309; 93005; 93010; J0131; J0330; J1100; J1170; J1335; J1650; J1741; J1885; J2250; J2270; J2405; J2704; J2765; J3010; J3480; J3490; J7030; S0028

== ENCOUNTER → 2016-08-09 | Outpatient (CLI) | payer MEDICARE | LOC: RAD 08:47 | PROVIDERS: ATTEND Radiology Radiation Oncology | DX: C19 Malignant neoplasm of rectosigmoid junction (principal); C77.5 Secondary and unspecified malignant neoplasm of intrapelvic lymph nodes | CPT/HCPCS: 78815; A9552 ==

== ENCOUNTER → 2016-08-13 | Outpatient (CLI) | payer MEDICARE | LOC: RAD 07:55 | PROVIDERS: ATTEND Physician Assistant | DX: R55 Syncope and collapse (principal) | CPT/HCPCS: 70450 ==

== ENCOUNTER 2016-08-20 13:25 | Day surgery (SDC) | payer MEDICARE ==
[~2016-08-20 13:25] MED LIST changes: +ACETAMINOPHEN 325 MG TABLET PO PRN; +CEFAZOLIN 1 GM/D5W RTU 1 GM/50 ML RTUPB IV SCH; +CEFAZOLIN 2 GM/D5W RTU 2 GM/50 ML RTUPB IV PRN; +GLYCOPYRROLATE INJ 0.4 MG/2 ML VIAL ONE; +LIDOCAINE 0.5% INJ-PF (5 MG/ML) 50 ML SDV INJ PRN; -LIDOCAINE 0.5% INJ-PF (5 MG/ML) 50 ML SDV SUBCUT PRN; +METOCLOPRAMIDE HCL INJ/PF 10 MG/2 ML SDV ONE; -NORMAL SALINE 1000 ML 1,000 ML IV PRN; +ONDANSETRON HCL INJ/PF 4 MG/2 ML SDV ONE; +RINGERS SOLUTION,LACTATED 1,000 ML IV PRN; -RINGERS SOLUTION,LACTATED 500 ML IV PRN
[2016-08-20 14:14] LABS: HEMATOCRIT 36.8 % (37.9-51.0); HEMOGLOBIN 11.8 g/dL (13.5-17.0); HGB HCT DIFFERENCE -1.4; MEAN CORPUSCULAR HEMOGLOBIN 25.2 pg (27.0-33.4); MEAN CORPUSCULAR VOLUME 79 fl (80-97); RED BLOOD COUNT 4.68 10^6/uL (4.35-5.55); RED CELL DISTRIBUTION WIDTH 16.2 % (11.5-14.0); WHITE BLOOD COUNT 8.9 10^3/uL (4.0-10.5)
[2016-08-20 14:34] LABS: ANION GAP 11 (5-19); BLOOD UREA NITROGEN 28 mg/dL (7-20); CARBON DIOXIDE 26 mmol/L (22-30); CHLORIDE 103 mmol/L (98-107); CREATININE RESULT 1.08 mg/dL (0.52-1.25); GLUCOSE 101 mg/dL (75-110); POTASSIUM 4.3 mmol/L (3.6-5.0); SODIUM 140.2 mmol/L (137-145)
--- NOTE | 2016-08-20 15:11 | RADIOLOGY REPORT (SQ) ---
EXAM DESCRIPTION: CHEST SINGLE VIEW COMPLETED DATE/TIME: 08/20/2016 2:26 pm REASON FOR STUDY: portacath COMPARISON: None. EXAM PARAMETERS: NUMBER OF VIEWS: One view. TECHNIQUE: Single frontal radiographic view of the chest acquired. RADIATION DOSE: NA LIMITATIONS: None. FINDINGS: LUNGS AND PLEURA: No opacities, masses or pneumothorax. No pleural effusion. MEDIASTINUM AND HILAR STRUCTURES: No masses. Contour normal. HEART AND VASCULAR STRUCTURES: Heart normal in size. Normal vasculature. BONES: No acute findings. HARDWARE: CABG. Bilateral shoulder arthroplasty. OTHER: No other significant finding. IMPRESSION: NO ACUTE RADIOGRAPHIC FINDING IN THE CHEST. TECHNICAL DOCUMENTATION: JOB ID: [id number]
[2016-08-20] MEDS ORDERED: BUPIVACAINE HCL 0.25 % INJ/PF (2.5 MG/1 ML) 30 ML VIAL ONE (17:54)
[2016-08-20] MEDS ORDERED: FENTANYL CITRATE INJ/PF 100 MCG/2 ML AMPUL ONE (18:22)
[2016-08-20] MEDS ORDERED: MIDAZOLAM 2 MG/2 ML INJ ONE (18:23)
[2016-08-20] MEDS ORDERED: PROPOFOL INJ 200 MG/20 ML VIAL IV ONE (18:24)
[2016-08-20] MEDS ORDERED: DEXMEDETOMIDINE INJ 80 MCG/20 ML VIAL IV ONE (18:24)
[2016-08-20] MEDS ORDERED: DIPHENHYDRAMINE HCL 50 MG/ML VIAL IV PRN (19:16)
[2016-08-20] MEDS ORDERED: PROMETHAZINE HCL INJ 25 MG/1 ML VIAL IV PRN ×2 (19:16)
[2016-08-20] MEDS ORDERED: OXYCODONE-ACETAMINOPHEN 5-325 MG TABLET PO PRN ×3 (19:16→19:34)
[2016-08-20] MEDS ORDERED: MEPERIDINE HCL/PF INJ 25 MG/1 ML DISP.SYRIN IV PRN (19:16)
[2016-08-20] MEDS ORDERED: FENTANYL CITRATE INJ/PF 100 MCG/2 ML AMPUL IV PRN ×3 (19:16)
[2016-08-20] MEDS ORDERED: MORPHINE SULFATE 10 MG/ML INJ IV PRN (19:16)
--- NOTE | 2016-08-20 19:27 | EKG REPORT ---
SEVERITY:- ABNORMAL ECG - SINUS RHYTHM FIRST DEGREE AV BLOCK LEFT ANTERIOR FASCICULAR BLOCK PROBABLE LEFT VENTRICULAR HYPERTROPHY : Confirmed by: Eric Leiva MD 20-Aug-2016 19:26:29
[2016-08-20] MEDS ORDERED: RINGERS SOLUTION,LACTATED 1,000 ML IV PRN (19:34)
[2016-08-20] MEDS ORDERED: ONDANSETRON HCL INJ/PF 4 MG/2 ML SDV IV PRN (19:34)
--- NOTE | 2016-08-20 19:34 | PDOC DISCHARGE SUMMARY ---
Discharge Summary (SDC) - Discharge Final Diagnosis: Rectal cancer Date of Surgery: 08/20/16 Discharge Date: 08/20/16 Condition: Good Treatment or Instructions: Right subclavian single-lumen PowerPort placement. May discharge patient home when met discharge criteria. Stay active but avoid strenuous activity. May shower in 36 hours. Discharge Diet: As Tolerated Discharge Activity: Activity As Tolerated - stay active but avoid strenuous activity. Report the Following to Your Physician Immediately: Fever over 101 Degrees, Unusual Bleeding, Redness, Drainage-Foul Smelling
--- NOTE | 2016-08-20 19:44 | Operative Report ---
Operative Report DATE OF SURGERY: 08/20/16 PREOPERATIVE DIAGNOSIS: Rectal cancer POSTOPERATIVE DIAGNOSIS: Rectal cancer OPERATION: Right subclavian single-lumen PowerPort placement (permanent implanted central venous access placement via fluoroscopic guidance) SURGEON: JAZZY SINGLETON ANESTHESIA: LMAC TISSUE REMOVED OR ALTERED: None COMPLICATIONS: None ESTIMATED BLOOD LOSS: Minimal INTRAOPERATIVE FINDINGS: None PROCEDURE: Informed consent was obtained. Patient was brought to the operating room and placed on the operating room table in the supine position. The procedure was done under LMAC. Patient's right neck and chest were prepped and draped in the usual sterile fashion. Local anesthetic was administered. The right subclavian vein was entered guidewire was placed into the central circulation under fluoroscopic guidance. A subcutaneous pocket was created in the patient' s right chest. A single lumen catheter was then tunneled to the guidewire entrance site. The catheter was placed into the central circulation through the introducer catheter. It was affixed to the PowerPort device which was implanted into the subcutaneous pocket. The tip resided at the superior vena cava right atrial junction. The PowerPort withdrew blood and flushed easily. Wounds were closed with deep dermal interrupted Vicryl sutures followed by running subcuticular Monocryl suture. Patient tolerated procedure well with no apparent complications and was taken to the recovery area in stable condition.
--- NOTE | 2016-08-20 20:03 | RADIOLOGY REPORT (SQ) ---
EXAM DESCRIPTION: CHEST SINGLE VIEW COMPLETED DATE/TIME: 08/20/2016 7:53 pm REASON FOR STUDY: Status post Port-A-Cath placement COMPARISON: 08/20/2016 EXAM PARAMETERS: NUMBER OF VIEWS: One view. TECHNIQUE: Single frontal radiographic view of the chest acquired. RADIATION DOSE: NA LIMITATIONS: None. FINDINGS: LUNGS AND PLEURA: [id number] is in place. No pneumothorax. Port overlies the right la teral chest wall. Catheter tip overlies the SVC. Lung gomes are clear. No effusions. MEDIASTINUM AND HILAR STRUCTURES: No masses. Contour normal. HEART AND VASCULAR STRUCTURES: Heart normal in size. Normal vasculature. BONES: No acute findings. HARDWARE: Unchanged. OTHER: No other significant finding. IMPRESSION: Interval placement of port as described. No acute findings. TECHNICAL DOCUMENTATION: JOB ID: [id number]
--- NOTE | 2016-08-20 21:08 | RADIOLOGY REPORT (SQ) ---
EXAM DESCRIPTION: CHEST SINGLE VIEW COMPLETED DATE/TIME: 08/20/2016 8:50 pm REASON FOR STUDY: PORTACATH C20 MALIGNANT NEOPLASM OF RECTUM COMPARISON: None. FLUOROSCOPY TIME: Total fluoroscopy time was 1.4 minutes. 3 images saved to PACS. TECHNIQUE: Intra-operative images acquired during surgical procedure to evaluate progress. NUMBER OF IMAGES: 3 LIMITATIONS: None. FINDINGS: Fluoroscopy was provided for intraoperative procedure. Please refer to the operative repo rt further discussion. IMPRESSION: IMAGE(S) OBTAINED DURING PROCEDURE. COMMENT: Quality ID [id number]: Final reports for procedures using fluoroscopy that document radiation exp osure indices, or exposure time and number of fluorographic images (if radiation exposure indices are not available) Please consult full operative report of the attending physician for description of the procedure. TECHNICAL DOCUMENTATION: JOB ID: [id number] [employer]- All Rights Reserved
--- NOTE | 2016-08-20 21:08 | RADIOLOGY REPORT (SQ) ---
EXAM DESCRIPTION: NO CHG FLUORO COMPLETE DATE/TIME: 08/20/2016 8:50 pm REASON FOR STUDY: PORTACATH C20 MALIGNANT NEOPLASM OF RECTUM FINDINGS: Please see combined report for performance of procedure and radiologic supervision and int erpretation. IMPRESSION: Please see combined report for performance of procedure and radiologic supervision and i nterpretation.
[2016-08-20 21:41] VITALS: BP 119/59
== END 2016-08-20 22:00 | disposition home or self-care (01) ==
LOC: OROUT 13:25 → 4N 20:25 → OROUT 22:00
PROVIDERS: ATTEND Surgery
PROC: 05H533Z Insertion of Infusion Device into Right Subclavian Vein, Percutaneous Approach (ICD-10-PCS; principal; 2016-08-20 15:45)
DX: C20 Malignant neoplasm of rectum (principal); I25.10 Atherosclerotic heart disease of native coronary artery without angina pectoris; N42.9 Disorder of prostate, unspecified; E78.00 Pure hypercholesterolemia, unspecified; I10 Essential (primary) hypertension; F17.210 Nicotine dependence, cigarettes, uncomplicated; Z79.82 Long term (current) use of aspirin; Z79.899 Other long term (current) drug therapy; Z95.1 Presence of aortocoronary bypass graft
CPT/HCPCS: 36415; 85027; 80048; 71010; 93005; 93010; 36561; C1788; J2250; J2765; J2405; J2704; J0690; J1642; J3490; 532; J3010

== ENCOUNTER → 2017-02-24 | Outpatient (CLI) | payer MEDICARE ==
--- NOTE | 2017-02-24 12:26 | RADIOLOGY REPORT (SQ) ---
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 PET-CT from July. TECHNIQUE: CT scan of the chest performed using helical scanning technique with dynamic intravenous contrast injection. Images reviewed with lung, soft tissue and bone windows. Reconstructed coronal a nd sagittal MPR images reviewed. All images stored on PACS. All CT scanners at this facility use dose modulation, iterative reconstruction, and/or weight based d osing when appropriate to reduce radiation dose to as low as reasonably achievable (ALARA). [facility]: Dose Right [facility]: CareDose [facility]: Dose Right [facility]: Teradose 4D [facility]: [employer] RADIATION DOSE: CT Rad equipment meets quality standard of care and radiation dose reduction techniq ues were employed. CTDIvol: 5.0 - 6.5 mGy. DLP: 820 mGy-cm.. LIMITATIONS: None. FINDINGS: AXILLAE: No adenopathy. CHEST WALL: Suspect mild left gynecomastia. No developing mass or abnormality otherwise. LUNGS: Trace effusions. No developing lung lesions or infiltrates. PLEURA: As above. THYROID: No gross thyroid region mass. HILAR AND MEDIASTINAL STRUCTURES: No identified masses or abnormal nodes. AORTA AND GREAT VESSELS: No aneurysm. No dissection. PULMONARY ARTERIES: There is linear filling defect in the main pulmonary artery, likely a way above c hronic clot. In retrospect, this was present previously. No new or developing or progressive pulmon sebastian embolus. Pulmonary arteries are prominent. This could reflect pulmonary arterial hypertension. HEART: No pericardial effusion. Previous CABG. HARDWARE AND LIFELINES: Right port. Tip to the superior vena cava. BONES: No significant finding. OTHER: No other significant finding. IMPRESSION: 1. No developing lung lesions. Note is made of small bilateral effusions which are new. 2. Probable chronic minimal when above clot in the main pulmonary artery. This was present previou sly. No developing or progressive pulmonary embolus. Prominent pulmonary arteries may reflect pulmo nary arterial hypertension. COMPARISON: As above. RADIATION DOSE: CT Rad equipment meets quality standard of care and radiation dose reduction technJump On It ues were employed. CTDIvol: 5.0 - 6.5 mGy. DLP: 820 mGy-cm.mGy. TECHNIQUE: CT scan of the abdomen and pelvis performed with intravenous and oral contrast using alana sterling scanning technique with dynamic intravenous contrast injection. Images reviewed with lung, soft tissue and bone windows. Reconstructed coronal and sagittal MPR images reviewed. Delayed images for evaluation of the urinary system also acquired and evaluated. All images stored on PACS. All CT scanners at this facility use dose modulation, iterative reconstruction, and/or weight based d osing when appropriate to reduce radiation dose to as low as reasonably achievable (ALARA). [facility]: Dose Right [facility]: SureCare [facility]: Dose Right [facility]: Teradose 4D [facility]: [employer] FINDINGS: LIVER: Normal size. No masses. No dilated ducts. SPLEEN: Normal size. No focal lesions. PANCREAS: No masses. No significant calcifications. No adjacent inflammation or peripancreatic flui d collections. Pancreatic duct not dilated. GALLBLADDER: Surgically absent. ADRENAL GLANDS: No significant masses or asymmetry. RIGHT KIDNEY AND URETER: Tiny cysts. No developing lesion. No stones or obstruction. LEFT KIDNEY AND URETER: Tiny cysts. No developing lesion. No stones or obstruction. AORTA AND VESSELS: Atherosclerotic but normal caliber aorta. No arterial occlusions. No venous clot . RETROPERITONEUM: No retroperitoneal adenopathy, hemorrhage or masses. LARGE AND SMALL BOWEL: No mass or obstruction. No ascites or abnormal gas or overt adenopathy. Mild chronic presacral scar. APPENDIX: Normal. ABDOMINAL WALL: Right upper quadrant subcutaneous ovoid low density mass. Possibly a small sebaceous cyst. This is larger compared to prior. No bowel containing hernia. No suspicious mass. PERITONEAL CAVITY: No free air. No free fluid. No peritoneal implants or masses. PELVIS: As above. Bladder unremarkable. No inguinal adenopathy or hernia. BONES: Osteopenia and spondylosis. OTHER: No other significant finding. IMPRESSION: 1. No suspicious abdominopelvic findings. No evidence of metastatic disease. TECHNICAL DOCUMENTATION: JOB ID: [id number] Quality ID # 436: Final reports with documentation of one or more dose reduction techniques (e.g., Au tomated exposure control, adjustment of the mA and/or kV according to patient size, use of iterative reconstruction technique) 2010 [employer]- All Rights Reserved
== END ==
LOC: RAD 09:57
PROVIDERS: ATTEND Internal Medicine
DX: C20 Malignant neoplasm of rectum (principal)
CPT/HCPCS: 71260; 74177

== ENCOUNTER → 2017-09-19 | Outpatient (CLI) | payer MEDICARE ==
--- NOTE | 2017-09-19 13:36 | RADIOLOGY REPORT (SQ) ---
EXAM DESCRIPTION: CTA CHEST COMPLETED DATE/TIME: 09/19/2017 1:20 pm REASON FOR STUDY: SOB (R06.02) R06.02 SHORTNESS OF BREATH COMPARISON: None. TECHNIQUE: CT scan of the chest performed using helical scanning technique with dynamic intravenous contrast injection. Images reviewed with lung, soft tissue and bone windows. Reconstructed coronal and sagittal MPR images reviewed. Additional 3 dimensional post-processing performed to develop Maximal Intensity Projection images (WA P). All images stored on PACS. All CT scanners at this facility use dose modulation, iterative reconstruction, and/or weight based d osing when appropriate to reduce radiation dose to as low as reasonably achievable (ALARA). [facility]: Dose Right [facility]: CareDose [facility]: Dose Right [facility]: Teradose 4D [facility]: [employer] CONTRAST TYPE AND DOSE: contrast/concentration: Isovue 370.00 mg/ml; Total Contrast Delivered: 68.0 ml; Total Saline Delivered: 110.0 ml Contrast bolus optimized for the pulmonary arteries. Not diagnostic for the aorta. RENAL FUNCTION: Creatinine 1.1 RADIATION DOSE: CT Rad equipment meets quality standard of care and radiation dose reduction techniq ues were employed. CTDIvol: 12.6 - 15.0 mGy. DLP: 465 mGy-cm. . LIMITATIONS: None. FINDINGS: LUNGS AND PLEURA: No masses, infiltrates, pneumothorax. No pleural effusions, calcificati ons. AORTA AND GREAT VESSELS: No aneurysm. Contrast bolus not optimized for the aorta. HEART: No pericardial effusion. Post CABG. Moderate cardiomegaly PULMONARY ARTERIES: No emboli visualized in the main pulmonary arteries or the segmental branches. HILAR AND MEDIASTINAL STRUCTURES: No identified masses or abnormal nodes. HARDWARE: None in the chest. UPPER ABDOMEN: Clips right upper quadrant post cholecystectomy. 1 cm right upper quadrant trocar abd ominal wall hernia, 10 mm in diameter on axial image 115, with herniation of a small amount of right upper quadrant fat and peritoneal fluid. THYROID AND OTHER SOFT TISSUES: No masses. No adenopathy. BONES: Multiple old healed right rib fractures. 3D MIPS: Confirm above findings. OTHER: No other significant finding. IMPRESSION: No CT angio evidence of acute pulmonary emboli. No pleural effusions. No pulmonary verena ma. Old sternotomy with CABG. Moderate cardiomegaly. Post cholecystectomy. Right upper quadrant anterior abdominal wall small hernia. COMMENT: Quality ID # 436: Final reports with documentation of one or more dose reduction techniques (e.g., Automated exposure control, adjustment of the mA and/or kV according to patient size, use of iterative reconstruction technique) TECHNICAL DOCUMENTATION: JOB ID: [id number] [employer]- All Rights Reserved Reading location - IP/workstation name: [facility]
[2017-09-19 15:16] LABS: ANION GAP 11 (5-19); BLOOD UREA NITROGEN 17 mg/dL (7-20); CALCIUM 9.6 mg/dL (8.4-10.2); CARBON DIOXIDE 26 mmol/L (22-30); CHLORIDE 106 mmol/L (98-107); GLUCOSE 90 mg/dL (75-110); POTASSIUM 4.3 mmol/L (3.6-5.0); SODIUM 142.9 mmol/L (137-145)
[2017-09-19 15:25] LABS: TROPONIN I 0.033 ng/mL
== END ==
LOC: RAD 12:36
PROVIDERS: ATTEND Family Medicine
DX: I25.10 Atherosclerotic heart disease of native coronary artery without angina pectoris (principal); R06.02 Shortness of breath
CPT/HCPCS: 36415; 71275; 80048; 82565; 83880; 84484

== ENCOUNTER → 2017-10-27 | Outpatient (CLI) | payer MEDICARE ==
--- NOTE | 2017-10-27 12:39 | RADIOLOGY REPORT (SQ) ---
EXAM DESCRIPTION: CHEST 2 VIEWS COMPLETED DATE/TIME: 10/27/2017 9:23 am REASON FOR STUDY: WHEEZING (R06.2) COMPARISON: 08/20/2016. EXAM PARAMETERS: NUMBER OF VIEWS: two views TECHNIQUE: Digital Frontal and Lateral radiographic views of the chest acquired. RADIATION DOSE: NA LIMITATIONS: none FINDINGS: LUNGS AND PLEURA: No opacities, masses or pneumothorax. No pleural effusion. MEDIASTINUM AND HILAR STRUCTURES: No masses or contour abnormalities. HEART AND VASCULAR STRUCTURES: Heart normal size. No evidence for failure. BONES: No acute findings. Old rib fractures. HARDWARE: Vascular access port, sternotomy wires, and surgical clips. Bilateral shoulder prostheses. OTHER: No other significant finding. IMPRESSION: NO ACUTE RADIOGRAPHIC FINDING IN THE CHEST. TECHNICAL DOCUMENTATION: JOB ID: [id number] [employer]- All Rights Reserved Reading location - IP/workstation name: [facility]
== END ==
LOC: RAD 08:51
PROVIDERS: ATTEND Physician Assistant
DX: R06.2 Wheezing (principal)
CPT/HCPCS: 71046

== ENCOUNTER → 2017-12-22 | Outpatient (CLI) | payer MEDICARE ==
--- NOTE | 2017-12-22 16:34 | RADIOLOGY REPORT (SQ) ---
EXAM DESCRIPTION: FOREARM RIGHT COMPLETED DATE/TIME: 12/22/2017 4:24 pm REASON FOR STUDY: PAIN IN RIGHT ARM M79.601 PAIN IN RIGHT ARM cut forearm on glass, now with diffus e soft tissue swelling and pain COMPARISON: None. NUMBER OF VIEWS: Two views. TECHNIQUE: Two radiographic images acquired of the right forearm, including elbow and wrist in at le ast one projection. LIMITATIONS: None. FINDINGS: There is diffuse cellulitis over the right forearm, with skin thickening and edema in the subcutaneous fat. A 4 x 2 cm soft tissue density is present in the forearm soft tissues which may re present a hematoma or abscess. This is best shown on lateral view. No underlying fracture of the radius or ulna. 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 Subcutaneous 4 x 2 cm soft tissue density palmar aspect distal third of the forearm may represent an abscess or hematoma TECHNICAL DOCUMENTATION: JOB ID: [id number] [employer]- All Rights Reserved Reading location - IP/workstation name: [facility]-RR2
== END ==
LOC: RAD 16:08
PROVIDERS: ATTEND Physician Assistant
DX: M79.601 Pain in right arm (principal); L03.113 Cellulitis of right upper limb

== ENCOUNTER → 2018-03-03 | Outpatient (CLI) | payer MEDICARE ==
--- NOTE | 2018-03-03 08:35 | RADIOLOGY REPORT (SQ) ---
EXAM DESCRIPTION: CT CHEST WITH COMPLETED DATE/TIME: 03/03/2018 8:14 am REASON FOR STUDY: RECTAL CA (C20) C20 MALIGNANT NEOPLASM OF RECTUM COMPARISON: 09/19/2017 TECHNIQUE: CT scan of the chest performed using helical scanning technique with dynamic intravenous contrast injection. Images reviewed with lung, soft tissue and bone windows. Reconstructed coronal and sagittal MPR and MIP images reviewed. All images stored on PACS. All CT scanners at this facility use dose modulation, iterative reconstruction, and/or weight based d osing when appropriate to reduce radiation dose to as low as reasonably achievable (ALARA). [facility]: Dose Right [facility]: CareDose [facility]: Dose Right [facility]: Teradose 4D [facility]: [employer] CONTRAST TYPE AND DOSE: Please see the medical record. RENAL FUNCTION: Within acceptable limits. RADIATION DOSE: . LIMITATIONS: None. FINDINGS: LUNGS AND PLEURA: Mild motion artifact. No infiltrates. Non nodules or masses. No pleur al gas or fluid. HILAR AND MEDIASTINAL STRUCTURES: No identified masses or abnormal nodes. HEART AND VASCULAR STRUCTURES: Cardiac enlargement. Previous CABG. No pericardial effusion. No aor tic aneurysm or dissection. No central pulmonary embolus. HARDWARE: Right port. UPPER ABDOMEN: See separate dictation same date. THYROID AND OTHER SOFT TISSUES: No masses. No adenopathy. BONES: No significant finding. OTHER: No other significant finding. IMPRESSION: No acute or suspicious thoracic abnormality. TECHNICAL DOCUMENTATION: JOB ID: [id number] Quality ID # 436: Final reports with documentation of one or more dose reduction techniques (e.g., Au tomated exposure control, adjustment of the mA and/or kV according to patient size, use of iterative reconstruction technique) 2010 [employer]- All Rights Reserved Reading location - IP/workstation name: [email or web address]
--- NOTE | 2018-03-03 08:59 | RADIOLOGY REPORT (SQ) ---
EXAM DESCRIPTION: CT ABD/PELVIS WITH IV ORAL COMPLETED DATE/TIME: 03/03/2018 8:14 am REASON FOR STUDY: RECTAL CA (C20) C20 MALIGNANT NEOPLASM OF RECTUM COMPARISON: CT chest same date CT chest abdomen pelvis 02/24/2017, 06/11/2016 PET-CT 08/09/2017 TECHNIQUE: CT scan of the abdomen and pelvis performed using helical scanning technique with dynamic intravenous contrast injection. Patient drank oral contrast. Images reviewed with lung, soft tissue , and bone windows. Reconstructed coronal and sagittal MPR images reviewed. Delayed images for evalua tion of the urinary system also acquired. All images stored on PACS. All CT scanners at this facility use dose modulation, iterative reconstruction, and/or weight based d osing when appropriate to reduce radiation dose to as low as reasonably achievable (ALARA). [facility]: Dose Right [facility]: CareDose [facility]: Dose Right [facility]: Teradose 4D [facility]: [email or web address] CONTRAST TYPE AND DOSE: contrast/concentration: Isovue 350.00 mg/ml; Total Contrast Delivered: 89.0 ml; Total Saline Delivered: 70.0 ml RENAL FUNCTION: GFR > 60. RADIATION DOSE: CT Rad equipment meets quality standard of care and radiation dose reduction techniq ues were employed. CTDIvol: 8.1 - 9.8 mGy. DLP: 1321 mGy-cm.. LIMITATIONS: None. FINDINGS: LOWER CHEST: No significant findings. No nodules or infiltrates. LIVER: Normal size. No worrisome masses. Stable benign hemangioma left lobe liver 2.8 cm in size on axial image 25. No dilated ducts. SPLEEN: Normal size. No focal lesions. PANCREAS: No masses. No significant calcifications. No adjacent inflammation or peripancreatic fluid collections. Pancreatic duct not dilated. GALLBLADDER: Surgically absent ADRENAL GLANDS: No significant masses or asymmetry. RIGHT KIDNEY AND URETER: No solid masses. Multiple tiny less than 1 cm renal cortical cysts. No sig nificant calcifications. No hydronephrosis or hydroureter. LEFT KIDNEY AND URETER: No solid masses. Multiple tiny less than 1 cm renal cortical cysts. No sign ificant calcifications. No hydronephrosis or hydroureter. AORTA AND VESSELS: No aneurysm. No dissection. Renal arteries, SMA, celiac without stenosis. RETROPERITONEUM: No retroperitoneal adenopathy, hemorrhage or masses. BOWEL AND PERITONEAL CAVITY: Patient drank oral contrast. No CT evidence of bowel obstruction or tommy e intraperitoneal air or fluid. APPENDIX: Normal. PELVIS: No mass. No free fluid. Normal bladder. Mild increased attenuation of the presacral fat pos tradiation/postsurgical changes, stable ABDOMINAL WALL: No masses. No hernias. BONES: Degenerative disc changes lumbar spine OTHER: No other significant finding. IMPRESSION: No CT evidence of metastatic disease in the abdomen or pelvis TECHNICAL DOCUMENTATION: JOB ID: [id number] Quality ID # 436: Final reports with documentation of one or more dose reduction techniques (e.g., Au tomated exposure control, adjustment of the mA and/or kV according to patient size, use of iterative reconstruction technique) 2010 [employer]- All Rights Reserved Reading location - IP/workstation name: [email or web address]
== END ==
LOC: RAD 07:28
PROVIDERS: ATTEND Physician Assistant Medical
DX: C20 Malignant neoplasm of rectum (principal); Q61.02 Congenital multiple renal cysts
CPT/HCPCS: 71260; 74177; 82565

== ENCOUNTER → 2018-04-27 | Outpatient (CLI) | payer MEDICARE ==
--- NOTE | 2018-04-27 12:14 | RADIOLOGY REPORT (SQ) ---
EXAM DESCRIPTION: CHEST 2 VIEWS COMPLETED DATE/TIME: 04/27/2018 11:00 am REASON FOR STUDY: COUGH COMPARISON: 10/27/2017 EXAM PARAMETERS: NUMBER OF VIEWS: two views TECHNIQUE: Digital Frontal and Lateral radiographic views of the chest acquired. RADIATION DOSE: NA LIMITATIONS: none FINDINGS: LUNGS AND PLEURA: No opacities, masses or pneumothorax. No pleural effusion. MEDIASTINUM AND HILAR STRUCTURES: No masses or contour abnormalities. HEART AND VASCULAR STRUCTURES: Heart normal size. No evidence for failure. BONES: No acute findings. HARDWARE: CABG. Shoulder arthroplasty. OTHER: No other significant finding. IMPRESSION: NO ACUTE RADIOGRAPHIC FINDING IN THE CHEST. TECHNICAL DOCUMENTATION: JOB ID: [id number] [employer]- All Rights Reserved Reading location - IP/workstation name: [email or web address]
== END ==
LOC: RAD 10:17
PROVIDERS: ATTEND Physician Assistant
DX: R05 Cough (principal); Z95.1 Presence of aortocoronary bypass graft
CPT/HCPCS: 71046

== ENCOUNTER → 2018-07-30 | Outpatient (CLI) | payer MEDICARE ==
--- NOTE | 2018-07-30 12:41 | RADIOLOGY REPORT (SQ) ---
EXAM DESCRIPTION: CHEST 2 VIEWS COMPLETED DATE/TIME: 07/30/2018 10:34 am REASON FOR STUDY: COUGH (R05) COMPARISON: 04/27/2018 EXAM PARAMETERS: NUMBER OF VIEWS: two views TECHNIQUE: Digital Frontal and Lateral radiographic views of the chest acquired. RADIATION DOSE: NA LIMITATIONS: none FINDINGS: LUNGS AND PLEURA: No opacities, masses or pneumothorax. No pleural effusion. MEDIASTINUM AND HILAR STRUCTURES: No masses or contour abnormalities. HEART AND VASCULAR STRUCTURES: Heart normal size. No evidence for failure. BONES: No acute findings. HARDWARE: Midline surgical changes and bilateral shoulder arthroplasties. OTHER: No other significant finding. IMPRESSION: NO ACUTE RADIOGRAPHIC FINDING IN THE CHEST. TECHNICAL DOCUMENTATION: JOB ID: [id number] [employer]- All Rights Reserved Reading location - IP/workstation name: [email or web address]
== END ==
LOC: RAD 10:15
PROVIDERS: ATTEND Physician Assistant
DX: R05 Cough (principal)
CPT/HCPCS: 71046

== ENCOUNTER → 2018-08-05 | Outpatient (CLI) | payer MEDICARE ==
[2018-08-05 12:28] LABS: HEMATOCRIT 32.2 % (37.9-51.0); HEMOGLOBIN 10.3 g/dL (13.5-17.0); MEAN CORPUSCULAR HEMOGLOBIN 24.4 pg (27.0-33.4); MEAN CORPUSCULAR HGB CONC 31.8 g/dL (32.0-36.0); MEAN CORPUSCULAR VOLUME 77 fl (80-97); PLATELET COUNT 587 10^3/uL (150-450); RED BLOOD COUNT 4.21 10^6/uL (4.35-5.55); RED CELL DISTRIBUTION WIDTH 18.6 % (11.5-14.0); WHITE BLOOD COUNT 24.8 10^3/uL (4.0-10.5)
[2018-08-05 13:00] LABS: ABSOLUTE MONOCYTES # (MANUAL) 0.5 10^3/uL (0.1-1.4); ABSOLUTE NEUTROPHILS# (MANUAL) 21.3 10^3/uL (1.7-8.2); BAND NEUTROPHILS % (MANUAL) 2 % (3-5); BASOPHILS % (MANUAL) 3 % (0-2); EOSINOPHILS % (MANUAL) 0 % (0-6); LYMPHOCYTES % (MANUAL) 5 % (13-45); MONOCYTES % (MANUAL) 2 % (3-13); SEGMENTED NEUTROPHILS % (MAN) 80 % (42-78); TOTAL CELLS COUNTED 100
[2018-08-05 13:06] LABS: HYPOCHROMASIA SLIGHT; POLYCHROMASIA 1+; TOXIC VACUOLATION PRESENT
[2018-08-05 13:07] LABS: ANISOCYTOSIS 2+; OVALOCYTES SLIGHT; PLATELET LARGE PRESENT; POIKILOCYTOSIS SLIGHT; SCHISTOCYTES SLIGHT; TEAR DROP CELLS SLIGHT
[2018-08-05 13:09] LABS: PLATELET COMMENT INCREASED
[2018-08-05 13:10] LABS: IMMATURE MONONUCLEAR% (MANUAL) 1 % (0); MYELOCYTES % (MANUAL) 2 % (0); NUCLEATED RED BLOOD CELLS 7 /100 WBC (0); PROMYELOCYTES % (MANUAL) 2 % (0)
== END ==
LOC: OD 11:00
PROVIDERS: ATTEND Family Medicine
DX: D72.828 Other elevated white blood cell count (principal)
CPT/HCPCS: 36415; 85025

== ENCOUNTER → 2019-02-15 | Outpatient (CLI) | payer MEDICARE ==
--- NOTE | 2019-02-15 10:59 | RADIOLOGY REPORT (SQ) ---
EXAM DESCRIPTION: CHEST PA/LATERAL COMPLETED DATE/TIME: 02/15/2019 10:48 am REASON FOR STUDY: CHEST PAIN, UNSPECIFIED COMPARISON: 07/30/2018 EXAM PARAMETERS: NUMBER OF VIEWS: two views TECHNIQUE: Digital Frontal and Lateral radiographic views of the chest acquired. RADIATION DOSE: NA LIMITATIONS: none FINDINGS: LUNGS AND PLEURA: No opacities, masses or pneumothorax. No pleural effusion. MEDIASTINUM AND HILAR STRUCTURES: No masses or contour abnormalities. HEART AND VASCULAR STRUCTURES: Heart normal size. No evidence for failure. BONES: No acute findings. HARDWARE: Sternotomy wires. Surgical clips. OTHER: No other significant finding. IMPRESSION: NO SIGNIFICANT RADIOGRAPHIC FINDING IN THE CHEST. TECHNICAL DOCUMENTATION: JOB ID: [id number] [employer]- All Rights Reserved Reading location - IP/workstation name: [email or web address]
== END ==
LOC: OD 10:07
PROVIDERS: ATTEND Family Medicine
DX: R07.9 Chest pain, unspecified (principal)
CPT/HCPCS: 36415; 71046; 84484

== ENCOUNTER → 2019-05-19 | Outpatient (CLI) | payer MEDICARE ==
--- NOTE | 2019-05-19 15:32 | RADIOLOGY REPORT (SQ) ---
EXAM DESCRIPTION: ABDOMEN 2 VIEWS COMPLETED DATE/TIME: 05/19/2019 3:22 pm REASON FOR STUDY: R14.0 ABDOMINAL DISTENSION (GASEOUS) R14.0 ABDOMINAL DISTENSION (GASEOUS) COMPARISON: None. NUMBER OF VIEWS: Two views. TECHNIQUE: Supine and erect/decubitus radiographic images of the abdomen acquired. LIMITATIONS: None. FINDINGS: FREE AIR: None. No abnormal gas collections. LUNG BASES: Clear. BOWEL GAS PATTERN: Nonobstructive gas pattern. Moderate amount of stool throughout the colon. CALCIFICATIONS: No suspicious calcifications. SOFT TISSUES: No gross mass or suggestion of organomegaly. HARDWARE: Surgical clips are present the right upper quadrant consistent with prior cholecystectomy. BONES: No acute fracture. No worrisome bone lesions. OTHER: No other significant finding. IMPRESSION: Constipation. No evidence of obstruction. TECHNICAL DOCUMENTATION: JOB ID: [id number] 2011 [employer]- All Rights Reserved Reading location - IP/workstation name: [email or web address]
== END ==
LOC: RAD 14:58
PROVIDERS: ATTEND Physician Assistant
DX: R14.0 Abdominal distension (gaseous) (principal)
CPT/HCPCS: 74019

== ENCOUNTER → 2019-06-14 | Outpatient (CLI) | payer MEDICARE ==
--- NOTE | 2019-06-14 10:31 | RADIOLOGY REPORT (SQ) ---
EXAM DESCRIPTION: CT CHEST WITH; CT ABD/PELVIS WITH IV ORAL COMPLETED DATE/TIME: 06/14/2019 10:13 am REASON FOR STUDY: RECTAL CANCER C20 MALIGNANT NEOPLASM OF RECTUM CONTRAST TYPE AND DOSE: contrast/concentration: Isovue 350.00 mg/ml; Total Contrast Delivered: 95.0 ml; Total Saline Delivered: 71.0 ml RENAL FUNCTION: BUN 20, creatinine 1.0 COMPARISON: None. TECHNIQUE: CT scan of the chest performed using helical scanning technique with dynamic intravenous contrast injection. Images reviewed with lung, soft tissue and bone windows. Reconstructed coronal a nd sagittal MPR images reviewed. All images stored on PACS. All CT scanners at this facility use dose modulation, iterative reconstruction, and/or weight based d osing when appropriate to reduce radiation dose to as low as reasonably achievable (ALARA). [facility]: Dose Right [facility]: CareDose [facility]: Dose Right [facility]: Teradose 4D [facility]: [employer] RADIATION DOSE: CT Rad equipment meets quality standard of care and radiation dose reduction techniq ues were employed. CTDIvol: 7.6 - 9.8 mGy. DLP: 1255 mGy-cm. . LIMITATIONS: None. FINDINGS: AXILLAE: No adenopathy. CHEST WALL: No masses. No subcutaneous air. LUNGS: Stable scarring in the left upper lobe anteriorly. No suspicious pulmonary nodules. No conso lidation. PLEURA: No effusions. No calcifications. THYROID: No masses or significant asymmetry. HILAR AND MEDIASTINAL STRUCTURES: No identified masses or abnormal nodes. AORTA AND GREAT VESSELS: No aneurysm. No dissection. PULMONARY ARTERIES: No identified pulmonary emboli. Study not optimized for the pulmonary arteries. HEART: No pericardial effusion. HARDWARE AND LIFELINES: Sternotomy wires are in place. BONES: No significant finding. OTHER: No other significant finding. IMPRESSION: No evidence of metastatic disease in the chest. COMPARISON: None. RADIATION DOSE: CT Rad equipment meets quality standard of care and radiation dose reduction techniq ues were employed. CTDIvol: 7.6 - 9.8 mGy. DLP: 1255 mGy-cm. mGy. TECHNIQUE: CT scan of the abdomen and pelvis performed with intravenous and oral contrast using alana sterling scanning technique with dynamic intravenous contrast injection. Images reviewed with lung, soft tissue and bone windows. Reconstructed coronal and sagittal MPR images reviewed. Delayed images for evaluation of the urinary system also acquired and evaluated. All images stored on PACS. All CT scanners at this facility use dose modulation, iterative reconstruction, and/or weight based d osing when appropriate to reduce radiation dose to as low as reasonably achievable (ALARA). [facility]: Dose Right [facility]: SureCare [facility]: Dose Right [facility]: Teradose 4D [facility]: [employer] FINDINGS: LIVER: Normal size. No masses. No dilated ducts. SPLEEN: Normal size. No focal lesions. PANCREAS: No masses. No significant calcifications. No adjacent inflammation or peripancreatic flui d collections. Pancreatic duct not dilated. GALLBLADDER: Surgically absent. ADRENAL GLANDS: No significant masses or asymmetry. RIGHT KIDNEY AND URETER: Small hypoattenuating lesions are stable in appearance and most likely cysts . Most are too small to characterize. No significant calcifications. No hydronephrosis or hydrou reter. LEFT KIDNEY AND URETER: Small hypoattenuating lesions most likely cysts. These are too small to accu rately characterize. No significant calcifications. No hydronephrosis or hydroureter. AORTA AND VESSELS: No aneurysm. No dissection. Renal arteries, SMA, celiac without stenosis. RETROPERITONEUM: Occasional small periaortic lymph node. These are nonspecific. LARGE AND SMALL BOWEL: No dilatation. No masses. No wall thickening. APPENDIX: Normal. ABDOMINAL WALL: Small subcutaneous lesion demonstrated on series 2, image 61 is slightly smaller in s ize when compared to prior study. This measures 1 point 2 x 2.6 cm in greatest AP and transverse dim ensions. PERITONEAL CAVITY: No free air. No free fluid. No peritoneal implants or masses. PELVIS: Mild presacral thickening stable from previous examination. No adenopathy or mass. BONES: Stable in appearance with small pelvic sclerotic lesions most likely bone islands. OTHER: No other significant finding. IMPRESSION: No evidence of metastatic disease in the abdomen or pelvis. TECHNICAL DOCUMENTATION: JOB ID: [id number] Quality ID # 436: Final reports with documentation of one or more dose reduction techniques (e.g., Au tomated exposure control, adjustment of the mA and/or kV according to patient size, use of iterative reconstruction technique) 2010 [employer]- All Rights Reserved Reading location - IP/workstation name: [email or web address]
== END ==
LOC: RAD 09:51
PROVIDERS: ATTEND Physician Assistant Medical
DX: C20 Malignant neoplasm of rectum (principal)
CPT/HCPCS: 71260; 74177

== ENCOUNTER → 2019-07-14 | Outpatient (CLI) | payer MEDICARE ==
[2019-07-14 10:02] LABS: ALBUMIN 4.2 g/dL (3.5-5.0); ALKALINE PHOSPHATASE 36 U/L (38-126); ANION GAP 6 (5-19); ASPARTATE AMINO TRANSFERASE 30 U/L (17-59); BLOOD UREA NITROGEN 32 mg/dL (7-20); CALCIUM 9.7 mg/dL (8.4-10.2); CARBON DIOXIDE 29 mmol/L (22-30); CHLORIDE 103 mmol/L (98-107); GLUCOSE 137 mg/dL (75-110); POTASSIUM 4.4 mmol/L (3.6-5.0); TOTAL PROTEIN 6.4 g/dL (6.3-8.2)
--- NOTE | 2019-07-14 10:14 | RADIOLOGY REPORT (SQ) ---
EXAM DESCRIPTION: CHEST PA/LATERAL IMAGES COMPLETED DATE/TIME: 07/14/2019 9:52 am REASON FOR STUDY: SOB COMPARISON: 02/15/2019 EXAM PARAMETERS: NUMBER OF VIEWS: two views TECHNIQUE: Digital Frontal and Lateral radiographic views of the chest acquired. RADIATION DOSE: NA LIMITATIONS: none FINDINGS: LUNGS AND PLEURA: No opacities, masses or pneumothorax. No pleural effusion. MEDIASTINUM AND HILAR STRUCTURES: No masses or contour abnormalities. HEART AND VASCULAR STRUCTURES: Heart normal size. No evidence for failure. BONES: Bilateral shoulder arthroplasty. HARDWARE: Sternotomy wires are in place. Numerous clips overlie the left hilar region. OTHER: No other significant finding. IMPRESSION: NO SIGNIFICANT RADIOGRAPHIC FINDING IN THE CHEST. TECHNICAL DOCUMENTATION: JOB ID: [id number] 2010 [employer]- All Rights Reserved Reading location - IP/workstation name: [email or web address]
== END ==
LOC: OD 08:58
PROVIDERS: ATTEND Physician Assistant
DX: R06.02 Shortness of breath (principal)
CPT/HCPCS: 36415; 71046; 80053; 83880

== ENCOUNTER 2020-01-13 04:31 | Emergency (ER) | payer MEDICARE ==
[2020-01-13 04:43] VITALS: BP 141/68
[2020-01-13] MEDS ORDERED: ACETAMINOPHEN 325 MG TABLET PO ONE (04:57)
== END 2020-01-13 07:08 | disposition left against medical advice (07) ==
LOC: ER 04:31
DX: Z53.21 Procedure and treatment not carried out due to patient leaving prior to being seen by health care provider (principal)

== ENCOUNTER → 2020-01-17 | Outpatient (CLI) | payer MEDICARE ==
[2020-01-17 18:31] LABS: ABSOLUTE BASOPHILS # (AUTO) 0.1 10^3/uL (0.0-0.2); ABSOLUTE EOSINOPHILS # (AUTO) 0.1 10^3/uL (0.0-0.6); ABSOLUTE LYMPHOCYTES (AUTO) 0.6 10^3/uL (0.5-4.7); ABSOLUTE MONOCYTES (AUTO) 0.9 10^3/uL (0.1-1.4); ABSOLUTE NEUT (AUTO) 4.6 10^3/uL (1.7-8.2); BASOPHILS % (AUTO) 1.2 % (0-2); EOSINOPHILS % (AUTO) 1.2 % (0-6); HEMOGLOBIN 10.8 g/dL (13.5-17.0); LYMPHOCYTES % (AUTO) 10.1 % (13-45); MEAN CORPUSCULAR HEMOGLOBIN 34.1 pg (27.0-33.4); MEAN CORPUSCULAR HGB CONC 33.8 g/dL (32.0-36.0); MEAN CORPUSCULAR VOLUME 101 fl (80-97); MONOCYTES % (AUTO) 14.6 % (3-13); PLATELET COUNT 147 10^3/uL (150-450); RED BLOOD COUNT 3.17 10^6/uL (4.35-5.55); RED CELL DISTRIBUTION WIDTH 15.3 % (11.5-14.0); SEGMENTED NEUTROPHILS % (AUTO) 72.9 % (42-78); TOTAL CELLS COUNTED % (AUTO) 100 %; WHITE BLOOD COUNT 6.3 10^3/uL (4.0-10.5)
--- NOTE | 2020-01-17 19:16 | RADIOLOGY REPORT (SQ) ---
EXAM DESCRIPTION: ELBOW RIGHT >2 VIEWS IMAGES COMPLETED DATE/TIME: 01/17/2020 5:24 pm REASON FOR STUDY: SWELLING OF RT ELBOW M25.421 EFFUSION, RIGHT ELBOW COMPARISON: None. NUMBER OF VIEWS: Four views. TECHNIQUE: AP, lateral, and both oblique radiographic images acquired of the right elbow. LIMITATIONS: None. FINDINGS: MINERALIZATION: Normal. BONES: No acute fracture or dislocation. No worrisome bone lesions. JOINT: No effusion. SOFT TISSUES: No soft tissue swelling. No foreign body. OTHER: No other significant finding. IMPRESSION: NEGATIVE STUDY OF THE RIGHT ELBOW. NO RADIOGRAPHIC EVIDENCE OF ACUTE INJURY. TECHNICAL DOCUMENTATION: JOB ID: [id number] 2010 [employer]- All Rights Reserved Reading location - IP/workstation name: [email or web address]
== END ==
LOC: OD 16:50
PROVIDERS: ATTEND Physician Assistant
DX: M25.421 Effusion, right elbow (principal)
CPT/HCPCS: 36415; 84550; 85025

== ENCOUNTER → 2020-01-18 | Outpatient (CLI) | payer MEDICARE ==
--- NOTE | 2020-01-18 11:37 | RADIOLOGY REPORT (SQ) ---
EXAM DESCRIPTION: VENOUS UNILATERAL UPPER IMAGES COMPLETED DATE/TIME: 01/18/2020 11:26 am REASON FOR STUDY: PAIN SWELLING REDNESS M79.621 PAIN IN RIGHT UPPER ARM M79.89 OTHER SPECIFIED SOF T TISSUE DISORDERS COMPARISON: None. TECHNIQUE: Dynamic and static mcclain scale and color images acquired of the right arm venous system. S elected spectral images acquired with additional compression and augmentation maneuvers. The contrala teral subclavian vein and internal jugular vein were also imaged. Images stored on PACS. LIMITATIONS: None. FINDINGS: INTERNAL JUGULAR VEIN: Normal phasicity, compression, augmentation. No visualized echogeni c material on mcclain scale. No defects on color images. Comparison opposite side normal. SUBCLAVIAN VEIN: Normal compression, augmentation. No visualized echogenic material on mcclain scale. No defects on color images. AXILLARY VEIN: Normal compression, augmentation. No visualized echogenic material on mcclain scale. No d efects on color images. BRACHIAL VEIN: Normal compression, augmentation. No visualized echogenic material on mcclain scale. No d efects on color images. BASILIC VEIN: Normal compression, augmentation. No visualized echogenic material on mcclain scale. No de fects on color images. CEPHALIC VEIN: Normal compression, augmentation. No visualized echogenic material on mcclain scale. No d efects on color images. OTHER: No other significant finding. CONTRALATERAL SUBCLAVIAN VEIN AND INTERNAL JUGULAR VEIN: Normal phasicity, compression and augmentation. No visualized echogenic material on mcclain scale. No de fects on color images. IMPRESSION: NO EVIDENCE DVT OR SVT IN THE RIGHT ARM. TECHNICAL DOCUMENTATION: JOB ID: [id number] 2010 [employer]- All Rights Reserved Reading location - IP/workstation name: [email or web address]
== END ==
LOC: SP 10:06
PROVIDERS: ATTEND Family Medicine
DX: M79.89 Other specified soft tissue disorders (principal)
CPT/HCPCS: 93971

== ENCOUNTER → 2020-03-30 | Outpatient (CLI) | payer MEDICARE ==
--- NOTE | 2020-03-30 11:57 | RADIOLOGY REPORT (SQ) ---
EXAM DESCRIPTION: CT HEAD WITHOUT IMAGES COMPLETED DATE/TIME: 03/30/2020 11:47 am REASON FOR STUDY: (R29.6)REPEATED FALLS R10.2 PELVIC AND PERINEAL PAIN R29.6 REPEATED FALLS COMPARISON: 2016 TECHNIQUE: Axial images acquired through the brain without intravenous contrast. Images reviewed wi th bone, brain and subdural windows. Images stored on PACS. All CT scanners at this facility use dose modulation, iterative reconstruction, and/or weight based d osing when appropriate to reduce radiation dose to as low as reasonably achievable (ALARA). [facility]: Dose Right [facility]: CareDose [facility]: Dose Right [facility]: Teradose 4D [facility]: Smart [employer] RADIATION DOSE: CT Rad equipment meets quality standard of care and radiation dose reduction techniq ues were employed. CTDIvol: 48.9 mGy. DLP: 960 mGy-cm. mGy. LIMITATIONS: None. FINDINGS: VENTRICLES: Prominent. CEREBRUM: No masses. No hemorrhage. No midline shift. Areas of low density in the white matter mos t likely due to chronic micro-vascular ischemic change. No evidence for acute infarction. CEREBELLUM: No masses. No hemorrhage. No alteration of density. No evidence for acute infarction. EXTRAAXIAL SPACES: Mild age-related involutional change. No fluid collections. No masses. ORBITS AND GLOBE: No intra- or extraconal masses. Normal contour of globe without masses. CALVARIUM: No fracture. PARANASAL SINUSES: No fluid or mucosal thickening. SOFT TISSUES: No mass or hematoma. OTHER: No other significant finding. IMPRESSION: MILD CHRONIC CHANGES OF ATROPHY AND MICROVASCULAR ISCHEMIA. NO ACUTE PROCESS. EVIDENCE OF ACUTE STROKE: NO. TECHNICAL DOCUMENTATION: JOB ID: [id number] Quality ID # [id number]: Final reports with documentation of one or more dose reduction techniques (e.g., Au tomated exposure control, adjustment of the mA and/or kV according to patient size, use of iterative reconstruction technique) 2010 [employer]- All Rights Reserved Reading location - IP/workstation name: [email or web address]
--- NOTE | 2020-03-30 15:31 | RADIOLOGY REPORT (SQ) ---
EXAM DESCRIPTION: CT PELVIS WITHOUT IMAGES COMPLETED DATE/TIME: 03/30/2020 9:05 am REASON FOR STUDY: (R10.2)PELVIC AND PERINEAL PAIN R10.2 PELVIC AND PERINEAL PAIN COMPARISON: CT abdomen pelvis 06/14/2019 TECHNIQUE: CT scan of the pelvis performed without intravenous or oral contrast. Images reviewed wi th soft tissue and bone windows. Reconstructed coronal and sagittal MPR images reviewed. All images stored on PACS. All CT scanners at this facility use dose modulation, iterative reconstruction, and/or weight based d osing when appropriate to reduce radiation dose to as low as reasonably achievable (ALARA). [facility]: Dose Right [facility]: CareDose [facility]: Dose Right [facility]: Teradose 4D [facility]: [employer] RADIATION DOSE: mGy. LIMITATIONS: None. FINDINGS: PELVIC BONES: No acute fracture. No worrisome bone lesions. VISUALIZED SPINE: No acute findings. HIP(S): No acute fracture or dislocation. No worrisome bone lesions. PELVIC SOFT TISSUES: Aortoiliac atherosclerosis. Urinary bladder is normal. No pelvic masses or flu id collections are seen. EXTRAPELVIC SOFT TISSUES: No significant findings. OTHER: No other significant finding. IMPRESSION: 1. No acute osseous finding in the pelvis or hips. 2. Aortoiliac atherosclerosis. TECHNICAL DOCUMENTATION: JOB ID: [id number] Quality ID # [id number]: Final reports with documentation of one or more dose reduction techniques (e.g., Au tomated exposure control, adjustment of the mA and/or kV according to patient size, use of iterative reconstruction technique) 2010 [employer]- All Rights Reserved Reading location - IP/workstation name: [email or web address]
== END ==
LOC: RAD 08:41
PROVIDERS: ATTEND Physician Assistant
DX: I70.0 Atherosclerosis of aorta (principal); R10.2 Pelvic and perineal pain; R29.6 Repeated falls
CPT/HCPCS: 70450; 72192